=== PATIENT | male | born 1995 | race Caucasian/White ===

== ENCOUNTER 2017-06-11 09:14 | Emergency (ER) | payer BC, MEDICAID ==
[~2017-06-11] VITALS: Ht 172.7 cm; Wt 111.0 kg
[2017-06-11] MEDS ORDERED: ONDANSETRON HCL 4MG/2ML VIAL IV STA (12:15)
[2017-06-11] MEDS ORDERED: KETOROLAC 30MG/ML VIAL IV STA (12:15)
[2017-06-11] MEDS ORDERED: SODIUM CHLORIDE 0.9% 1,000 ML IV ONE (12:15)
[2017-06-11 12:36] LABS: BASOPHILS % 0.2 % (0.0-2.0); EOSINOPHILS % 1.7 % (0.0-5.0); HEMATOCRIT. 46.4 % (42.0-52.0); HEMOGLOBIN. 15.7 g/dL (14.0-18.0); LYMPHOCYTES % 12.9 % (20.0-50.0); MEAN CORPUSCULAR HEMOGLOBIN 28.7 pg (28.0-32.0); MEAN CORPUSCULAR VOLUME 84.7 fL (80.0-94.0); MEAN PLATELET VOLUME 8.9 fl (7.4-10.4); MONOCYTES % 4.6 % (2.0-8.0); NEUTROPHILS % 80.6 % (40.0-76.0); PLATELET 294 x1000/uL (130-400); RED BLOOD CELL COUNT 5.48 mill/uL (4.7-6.1); RED CELL DISTRIBUTION WIDTH 13.7 % (11.6-14.6)
[2017-06-11 12:49] LABS: CARBON DIOXIDE 30 mEq/L (21-32); CHLORIDE 107 mEq/L (98-107)
[2017-06-11 14:13] VITALS: BP 114/78
[2017-06-11 14:28] LABS: CLARITY URINE CLEAR (CLEAR); COLOR URINE DARK YELLOW (YELLOW); KETONES URINE TRACE (NEGATIVE); LEUKOCYTE ESTERASE URINE NEGATIVE (NEGATIVE); NITRITE URINE NEGATIVE (NEGATIVE); OCCULT BLOOD URINE NEGATIVE (NEGATIVE); PH URINE 5.5 (4.5-8.0); PROTEIN URINE TRACE (NEGATIVE); SPECIFIC GRAVITY URINE 1.036 (1.005-1.030); UROBILINOGEN URINE 0.2 E.U./dL (0.2-1.0)
== END 2017-06-11 17:01 | disposition home or self-care (01) ==
LOC: ER 09:29
DX: R10.13 Epigastric pain (principal); R11.2 Nausea with vomiting, unspecified; Z88.0 Allergy status to penicillin
CPT/HCPCS: 36415; 74010; 80053; 81001; 83690; 85025; 96361; 96374; 96375; 99285; J1885; J2405; J7030; Z7610